=== PATIENT | female | born 1990 | race Hispanic/Latino ===

== ENCOUNTER 2018-06-16 04:04 | Emergency (ER) | payer BC ==
[~2018-06-16] VITALS: Ht 165.1 cm; Wt 90.7 kg
[~2018-06-16 04:04] MED LIST: EXCEDRIN EXTRA1 EAC1; MELOXICAM7.5 MG PO; MUCINEX DM ER1 EACH PO; NORTRIPTYLINE H50 MG PO
[2018-06-16] MEDS ORDERED: SODIUM CHLORIDE 0.9% 1000ML 1,000 ML IV STA (04:19)
[2018-06-16] MEDS ORDERED: KETOROLAC TROMETHAMINE 30 MG/ML VIAL IV STA (04:19)
[2018-06-16] MEDS ORDERED: DIPHENHYDRAMINE HCL INJ 50 MG/ML VIAL IV ONE (04:30)
[2018-06-16] MEDS ORDERED: METOCLOPRAMIDE HCL 10 MG/2ML VIAL IV ONE (04:30)
--- NOTE | 2018-06-16 05:42 | Diagnostic Imaging Report ---
History: Headache Comparison studies: None Technique: Axial images were obtained from the skull base to the vertex. Coronal and sagittal reconstructions obtained from the axial data. Dose modulation, iterative reconstruction, and/or weight based adjustment of the mA/kV was utilized to reduce the radiation dose to as low as reasonably achievable. Findings: Scalp/skull: No abnormalities. No fractures, blastic or lytic lesions. Extra-axial spaces: No masses. No fluid collections. Brain sulci: Appropriate for age. Ventricles: Normal in size and configuration. No hydrocephalus. Parenchyma: No abnormal densities. No masses, hemorrhage, acute or chronic cortical vascular insults. Sellar/suprasellar region: No abnormalities Craniocervical junction: Patent foramen magnum. No Chiari one malformation. IMPRESSION: No abnormalities Signed by: Dr. Francois Finley M.D. on 06/16/2018 5:37 AM
== END 2018-06-16 06:19 | disposition home or self-care (01) ==
LOC: ER 04:04
DX: G44.221 Chronic tension-type headache, intractable (principal); G43.909 Migraine, unspecified, not intractable, without status migrainosus
CPT/HCPCS: 70450; 81025; 96374; 96375; 99283; J1200; J1885; J2765; J7030